=== PATIENT | female | born 2000 | race Caucasian/White ===

== ENCOUNTER → 2018-09-22 | Outpatient (CLI) | payer OTHER ==
[2015-06-28 10:25] VITALS: BP 88/51
[~2018-09-22] MED LIST: CETI10TA22 PO; HYDR-2678 PO; SULF1TAB24 PO; birthcontrol PO
--- NOTE | 2018-09-22 15:50 | KCIC ---
Chest, PA and Lateral: Technique: PA and lateral views of the chest were obtained. History: Positive PPD test. Comparison: None. Findings: The heart and pulmonary vasculature appear within normal limits. The lungs are clear. The pleural margins are clear. Impression: No acute chest process is seen. Electronically signed by: Jose F Frances MD (09/22/2018 3:47 PM) [id number]
== END | disposition home or self-care (01) ==
LOC: KCIC 15:13
PROVIDERS: ATTEND Nurse Practitioner Family
DX: Z11.1 Encounter for screening for respiratory tuberculosis (principal); R76.11 Nonspecific reaction to tuberculin skin test without active tuberculosis
CPT/HCPCS: 71046